=== PATIENT | female | born 1945 | race Caucasian/White ===

== ENCOUNTER 2016-11-23 15:49 | Emergency (ER) | payer MEDICARE ==
[2016-11-23 16:41] VITALS: BP 161/110
[2016-11-23] MEDS ORDERED: Lidocaine 2% W/EPI 1:100,000* 20 ML MDV ONE (17:19)
--- NOTE | 2016-11-23 17:25 | UC ---
Laceration HPI - HPI Summary HPI Summary: Fell at drug store, hit chin and sustained laceration. Denies neck or dental pain. - History Of Current Complaint Chief Complaint: UCLaceration Stated Complaint: CHIN LAC Time Seen by Provider: 11/23/16 16:27 Hx Obtained From: Patient Laceration Location: Face Mechanism Of Injury: Blunt Trauma Onset/Duration: Sudden Onset Severity: Mild - Allergies/Home Medications Allergies/Adverse Reactions: Allergies Allergy/AdvReac Type Severity Reaction Status Date / Time Levofloxacin [From Levaquin] Allergy Intermediate Hives Verified 12/17/15 16:09 Codeine Allergy Unknown Headache Verified 12/17/15 16:09 Fentanyl Allergy Unknown Unknown Verified 12/17/15 16:09 Reaction Details Penicillin G Allergy Unknown Hives Verified 12/17/15 16:09 [From Penicillin Potassium-G] Morphine AdvReac Unknown Headache Verified 12/17/15 16:09 bees Allergy Swelling Uncoded 12/17/15 16:09 PMH/Surg Hx/FS Hx/Imm Hx Endocrine History Of: Denies: Diabetes, Thyroid Disease, Hyperthyroidism, Hypothyroidism Cardiovascular History Of: Reports: Hypertension, Congestive Heart Failure Denies: Cardiac Disorders Respiratory History Of: Reports: COPD, Bronchitis Denies: Asthma GI/ History Of: Denies: Ulcer, Renal Disease Neurological History Of: Denies: TIA, Seizures - Surgical History Surgical History: Yes Surgery Procedure, Year, and Place: bilat mastectomy. right hip replace 09/2006 , hysterectomy. AAA repair 11/11. - Family History Known Family History: Positive: Hypertension - Social History Occupation: Retired Alcohol Use: None Substance Use Type: None Smoking Status (MU): Light Every Day Tobacco Smoker Type: Cigarettes Amount Used/How Often: 1 PACK/WEEK Length of Time of Smoking/Using Tobacco: 60+ YEARS Have You Smoked in the Last Year: Yes - Immunization History Most Recent Influenza Vaccination: 2014 Most Recent Tetanus Shot: <5 yrs Most Recent Pneumonia Vaccination: CURRENT Review of Systems Constitutional: Negative Skin: Other - 2cm lac chin Eyes: Negative ENT: Negative Respiratory: Negative Cardiovascular: Negative Gastrointestinal: Negative Genitourinary: Negative Motor: Negative Neurovascular: Negative Musculoskeletal: Negative Neurological: Negative Psychological: Negative All Other Systems Reviewed And Are Negative: Yes Physical Exam Triage Information Reviewed: Yes Appearance: Well-Appearing, No Pain Distress, Well-Nourished Vital Signs: Initial Vital Signs Temp 97.1 F 11/23/16 16:32 Pulse 82 11/23/16 16:32 Resp 18 11/23/16 16:32 BP 161/110 11/23/16 16:32 Pulse Ox 98 11/23/16 16:32 Vital Signs Reviewed: Yes Eye Exam: Normal Eyes: Positive: Conjunctiva Clear ENT Exam: Normal ENT: Positive: Normal ENT inspection, Hearing grossly normal, Pharynx normal, TMs normal Dental Exam: Other - some missing teeth, no dental pain Dental: Negative: Percussion Tenderness @ Neck exam: Normal Neck: Positive: Supple, Nontender, No Lymphadenopathy Respiratory Exam: Normal Respiratory: Positive: Chest non-tender, Lungs clear, Normal breath sounds, No respiratory distress, No accessory muscle use Cardiovascular Exam: Normal Cardiovascular: Positive: RRR, No Murmur Musculoskeletal Exam: Normal, Other Musculoskeletal: Positive: Strength Intact, ROM Intact Neurological Exam: Normal Neurological: Positive: Alert, Muscle Tone Normal Psychological Exam: Normal Skin Exam: Other - 2cm lac on chin Laceration Repair - Laceration Repair 1 Description: Linear Laceration Size After Repair: Length (cm) - 2, Width (mm) - 0, Depth (mm) - 0 Modified For Repair: No Type Injection: Local Anesthesia Used: 2.0% Lido Additive Used (in ml): Epi Irrigation With Pressure Irrigation Device: Yes Closure Material: Sutures Closure Method: Single Layer Suture Of: Skin Suture Type: Nylon - #6 6-0 Laceration Course/Dx - Differential Dx - Laceration/Wound Provider Diagnoses: Chin laceration repair Discharge - Discharge Plan Condition: Stable Disposition: HOME Patient Education Materials: Facial Laceration (ED) Additional Instructions: Return here in 7-8 days for suture removal. Come back sooner if you suspect a problem.
== END 2016-11-23 18:00 | disposition home or self-care (01) ==
LOC: UCEAST 15:49
DX: S01.81XA Laceration without foreign body of other part of head, initial encounter (principal); W19.XXXA Unspecified fall, initial encounter; Y92.512 Supermarket, store or market as the place of occurrence of the external cause; J44.9 Chronic obstructive pulmonary disease, unspecified; Z88.5 Allergy status to narcotic agent; Z88.0 Allergy status to penicillin; F17.210 Nicotine dependence, cigarettes, uncomplicated
CPT/HCPCS: 12011; 99211; G0463

== ENCOUNTER 2016-11-29 11:11 | Emergency (ER) | payer MEDICARE ==
[2016-11-29 12:26] VITALS: BP 154/104
== END 2016-11-29 13:15 | disposition left against medical advice (07) ==
LOC: UCEAST 11:11
DX: Z48.02 Encounter for removal of sutures (principal); Z53.21 Procedure and treatment not carried out due to patient leaving prior to being seen by health care provider

== ENCOUNTER 2017-05-11 21:24 | Emergency (ER) | payer MEDICARE ==
[2017-05-11] MEDS ORDERED: oxyCODONE TAB* 5 MG TAB PO ONE (23:24)
--- NOTE | 2017-05-12 00:32 | ED ---
Adult Trauma - HPI Summary HPI Summary: 71F presents with left wrist pain and finger laceration s/p fall. She tripped and landed on her left arm. There may have been a potential head injury but she denies any LOC. She admits to numbness over wrist were ice is but she has feeling there. She is not on blood thinners. She denies any nausea or vomiting. She fell onto her wrist and her cane. She has history of joint pain in her wrist and fingers. She takes oxy on a daily basis. She denies any neck pain, chest pain, SOB, abdominal pain, or lower extremity pain. She believes tetanus is up to date. She is right handed. - History of Current Complaint Chief Complaint: EDExtremityUpper Stated Complaint: FALL/LT ARM INJURY Time Seen by Provider: 05/11/17 22:11 Hx Last Menstrual Period: NA Pain Intensity: 8 - Additional Pertinent History Primary Care Physician: JEANNE - Allergy/Home Medications Allergies/Adverse Reactions: Allergies Allergy/AdvReac Type Severity Reaction Status Date / Time Levofloxacin [From Levaquin] Allergy Intermediate Hives Verified 12/17/15 16:09 Codeine Allergy Unknown Headache Verified 12/17/15 16:09 Fentanyl Allergy Unknown Unknown Verified 12/17/15 16:09 Reaction Details Penicillin G Allergy Unknown Hives Verified 12/17/15 16:09 [From Penicillin Potassium-G] Morphine AdvReac Unknown Headache Verified 12/17/15 16:09 bees Allergy Swelling Uncoded 12/17/15 16:09 PMH/Surg Hx/FS Hx/Imm Hx Endocrine/Hematology History: Denies: Hx Anticoagulant Therapy, Hx Diabetes, Hx Thyroid Disease Cardiovascular History: Reports: Hx Aneurysm - AAA 10/2015, aortic root replacment, Hx Congestive Heart Failure, Hx Hypercholesterolemia, Hx Hypertension Respiratory History: Reports: Hx Chronic Obstructive Pulmonary Disease (COPD), Hx Pleural Effusion Denies: Hx Asthma GI History: Reports: Hx Gastroesophageal Reflux Disease, Hx Obstructive Bowel, Other GI Disorders - see above hx Denies: Hx Ulcer History: Denies: Hx Renal Disease Musculoskeletal History: Denies: Hx Arthritis, Hx Osteoporosis Sensory History: Denies: Hx Contacts or Glasses Opthamlomology History: Denies: Hx Contacts or Glasses Neurological History: Denies: Hx Headaches, Hx Seizures, Hx Transient Ischemic Attacks (TIA) - Cancer History Cancer Type, Location and Year: breast cancer 11/2011- clear as of 08/2012 Hx Chemotherapy: Yes - 04/[address] vela - Surgical History Surgery Procedure, Year, and Place: bilat mastectomy. right hip replace 09/2006 , hysterectomy. AAA repair 11/11. Infectious Disease History: No Infectious Disease History: Reports: Hx Shingles - treated Denies: Hx Clostridium Difficile, Hx Hepatitis, Hx Human Immunodeficiency Virus (HIV), Hx of Known/Suspected MRSA, Hx Tuberculosis, Hx Known/Suspected VRE , Hx Known/Suspected VRSA, History Other Infectious Disease, Traveled Outside the [place] in Last 30 Days - Family History Known Family History: Positive: Hypertension - Social History Alcohol Use: None Substance Use Type: Reports: None Smoking Status (MU): Light Every Day Tobacco Smoker Type: Cigarettes Amount Used/How Often: 1 PACK/WEEK Length of Time of Smoking/Using Tobacco: 60+ YEARS Have You Smoked in the Last Year: Yes Review of Systems Negative: Fever Negative: Chest Pain Negative: Shortness Of Breath Positive: Myalgia - left wrist Positive: Other - laceration All Other Systems Reviewed And Are Negative: Yes Physical Exam Triage Information Reviewed: Yes Vital Signs On Initial Exam: Initial Vitals Temp Pulse Resp BP Pulse Ox 98.2 F 72 16 116/72 96 05/11/17 21:31 05/11/17 21:31 05/11/17 21:31 05/11/17 21:31 05/11/17 21:31 Vital Signs Reviewed: Yes Appearance: Positive: Well-Appearing Skin: Positive: Warm, Dry, Other - 1cm avulsion with skin flap on distal phlanax near nail of left ring finger Head/Face: Positive: Normal Head/Face Inspection, Other - no step off, racoon eyes, colon sign Eyes: Positive: Normal ENT: Positive: Normal ENT inspection, Pharynx normal, TMs normal Respiratory/Lung Sounds: Positive: Clear to Auscultation, Breath Sounds Present Cardiovascular: Positive: Normal, RRR Musculoskeletal: Positive: Strength/ROM Intact - finger left, Limited @ - left wrist, Edema Left - wrist, Other - good pulses, capillary refill<2 secs, Neurological: Positive: Sensory/Motor Intact, Alert, Oriented to Person Place, Time, CN Intact II-III - [place] Coma Scale Best Eye Response: 4 - Spontaneous Best Motor Response: 6 - Obeys Commands Best Verbal Response: 5 - Oriented Coma Scale Total: 15 Procedures - Splinting Location: left wrist Hand-Made Type: orthoglass Splint: sugar-tong Pre-Proc Neuro Vasc Exam: normal Post-Proc Neuro Vasc Exam: normal - Laceration/Wound Repair 1 Location: Other - left finger Description: Irregular - avulsion Length, Depth and Shape: avulsion 1cm with skin flap Irrigated w/ Saline (ccs): 200 Sterile Dressing Applied?: No - placed pressure dressing Diagnostics - Vital Signs Vital Signs Temp Pulse Resp BP Pulse Ox 05/11/17 21:31 98.2 F 72 16 116/72 96 - Laboratory Lab Statement: Any lab studies that have been ordered have been reviewed, and results considered in the medical decision making process. - Radiology wrist, hand Xray Interpretation: Positive (See Comments) - distal radius fx Radiology Interpretation Completed By: ED Physician - CT brain CT Interpretation: No Acute Changes - no hemorrhage or fracture CT Interpretation Completed By: Radiologist Adult Trauma Course/Dx - Course Course Of Treatment: 71F presents with left wrist pain and finger laceration s/ p fall. She tripped and landed on her left arm. There may have been a potential head injury but she denies any LOC. She admits to numbness over wrist were ice is but she has feeling there. She is not on blood thinners. She denies any nausea or vomiting. She fell onto her wrist and her cane. She has history of joint pain in her wrist and fingers. She takes oxy on a daily basis. She denies any neck pain, chest pain, SOB, abdominal pain, or lower extremity pain. on exam has avulsion of left ring finger. wrist xray shows distal radius fracture. placed in splint and placed compression dressing on finger. told to follow up with ortho. patient understands and agrees with plan. - Diagnoses Provider Diagnoses: Left wrist fracture, Finger laceration Discharge - Discharge Plan Condition: Good Disposition: HOME Patient Education Materials: Wrist Fracture in Adults (ED), Skin Avulsion (ED) Referrals: Brigido Hernandez MD [Primary Care Provider] - Yessica Bruner MD [Medical Doctor] - Additional Instructions: Keep area in pressure dressing for 48 hours Keep splint on area and keep dry Call ortho office tomorrow to set up appointment for follow up Use normal pain medication Ice, elevate Follow up with primary within 5 days Return to ED if develop any signs of infection such as fever, spreading redness , or pus formation or if bleed through pressure dressing or any new or worsening symptoms
[2017-05-12 01:29] VITALS: BP 167/125
--- NOTE | 2017-05-12 07:35 | RAD ---
HISTORY: Fall, left hand and wrist pain COMPARISONS: None VIEWS: 6, Frontal, lateral, and oblique views of the left hand and of the left breast FINDINGS: BONE DENSITY: There is diffuse osteopenia. BONES: There is a dorsally angulated fracture of the distal radial metaphysis without significant displacement. JOINTS: There is osteoarthritis of the first CMC joint and of the first MCP joint and to a lesser extent of the interphalangeal joints. ALIGNMENT: There is no dislocation. SOFT TISSUES: Unremarkable. OTHER FINDINGS: None. IMPRESSION: 1. DORSALLY ANGULATED FRACTURE OF THE DISTAL RADIAL METAPHYSIS. 2. OSTEOPENIA. 3. OSTEOARTHRITIS.
--- NOTE | 2017-05-12 07:52 | RAD ---
HISTORY: Fall COMPARISONS: None TECHNIQUE: Multiple contiguous axial CT scans were obtained of the head without intravenous contrast. FINDINGS: HEMORRHAGE/INFARCT: There is no hemorrhage or acute infarct. MASSES/SHIFT: There is no mass or shift. EXTRA-AXIAL SPACES: There are no extra-axial fluid collections. SULCI AND VENTRICLES: There is mild diffuse and proportional enlargement of the sulci and ventricles. CEREBRUM: There are no focal parenchymal abnormalities. BRAINSTEM: There are no focal parenchymal abnormalities. CEREBELLUM: There are no focal parenchymal abnormalities. VESSELS: The vessels are grossly normal. PARANASAL SINUSES: The paranasal sinuses are clear. ORBITS: The orbits are unremarkable. BONES AND SOFT TISSUE: No bone or soft tissue abnormalities are noted. OTHER: None IMPRESSION: NO ACUTE INTRACRANIAL PATHOLOGY.
== END 2017-05-12 00:59 | disposition home or self-care (01) ==
LOC: ED 21:24
DX: S62.102A Fracture of unspecified carpal bone, left wrist, initial encounter for closed fracture (principal); S61.219A Laceration without foreign body of unspecified finger without damage to nail, initial encounter; W19.XXXA Unspecified fall, initial encounter; Y93.9 Activity, unspecified; Y92.9 Unspecified place or not applicable; F17.210 Nicotine dependence, cigarettes, uncomplicated
CPT/HCPCS: 70450; 99283; A9270-GY

== ENCOUNTER 2017-06-22 18:15 | Emergency (ER) | payer MEDICARE ==
[2017-06-22] MEDS ORDERED: NS 0.9% 1000 ML* 1,000 ML IV ONE (20:27)
[2017-06-22] MEDS ORDERED: Ondansetron INJ* 2 MG/ML VIAL IV ONE (20:27)
[2017-06-22] MEDS ORDERED: HYDROmorphone INJ* 1 MG/ML CARPUJECT SYRINGE IV SLOW PU ONE (20:27)
[2017-06-22 21:06] LABS: Hematocrit 33 % (35-47); Mean Corpuscular HGB Conc 33 g/dl (31-36); Mean Corpuscular Hemoglobin 31 pg (27-31); Mean Corpuscular Volume 93 fL (80-97); Mean Platelet Volume 6 um3 (7.4-10.4); Red Blood Count 3.57 10^6/ul (4.0-5.4); Red Cell Distribution Width 15 % (10.5-15)
[2017-06-22 21:22] LABS: Albumin 3.8 g/dL (3.2-5.2); BUN/Creatinine Ratio 14.4 (8-20); C Reactive Protein 3.77 mg/L (< 5.00); Calcium 9.7 mg/dL (8.6-10.3); EGFR African American 62.3 (>60); EGFR Non-African American 48.5 (>60); Globulin 3.4 g/dL (2-4); Total Bilirubin 0.5 mg/dL (0.2-1.0); Total Protein 7.2 g/dL (6.4-8.9)
[2017-06-22 21:25] LABS: Potassium 2.7 mmol/L (3.5-5.0)
[2017-06-22 21:50] LABS: Troponin I 0.01 ng/mL (<0.04)
[2017-06-22] MEDS: KCL 20 MEQ/100 ML IVPREMIX* 20 MEQ/100 ML BAG IV SCH (23:07)
[2017-06-22 23:34] LABS: Urine Bacteria Absent (Absent); Urine Bilirubin Negative (Negative); Urine Glucose Negative (Negative); Urine Nitrite Negative (Negative)
[2017-06-23] MEDS ORDERED: HYDROmorphone INJ* 1 MG/ML CARPUJECT SYRINGE IV SLOW PU ONE (00:54)
[2017-06-23] MEDS ORDERED: Ondansetron INJ* 2 MG/ML VIAL IV ONE (00:54)
[2017-06-23] MEDS: KCL 20 MEQ/100 ML IVPREMIX* 20 MEQ/100 ML BAG IV SCH (01:15)
[2017-06-23] MEDS ORDERED: Labetalol IV* 5 MG/ML 20 ML VIAL IV PUSH ONE (02:29)
--- NOTE | 2017-06-23 02:41 | ED ---
Lamine Mendez Alfonso, scribed for Shante Hoff MD on 06/22/17 at 2012 . Hypertension - HPI Summary HPI Summary: This patient is a 71 year old F presenting to [facility] accompanied by daughter and granddaughter with a chief complaint of high blood pressure since earlier today. Her visiting nurse reported a blood pressure of approximately 200/100. The patient rates the pain 4/10 in severity. Symptoms aggravated by nothing. Symptoms alleviated by nothing. Patient reports nausea (since an hour ago), and right-sided abdominal pain (since the afternoon which radiate to her back). Patient denies CP, SOB, and dysuria. She lives alone. PMHX includes an internal hernia in September 2014, aneurysm, CHF, HTN, and COPD. - History of Current Complaint Chief Complaint: EDGeneral Stated Complaint: HIGH BLOOD PRESSURE Time Seen by Provider: 06/22/17 19:45 Hx Obtained From: Patient Hx Last Menstrual Period: NA Onset/Duration: Started Hours Ago, Still Present Timing: Constant Reported Blood Pressure Prior To Arrival: 200/100 Aggravating Factor(s): Nothing Alleviating Factor(s): Nothing Associated Signs & Symptoms: Other: - nausea (since an hour ago), and right- sided abdominal pain (since the afternoon which radiate to her back). Patient denies CP, SOB, and dysuria. - Allergies/Home Medications Allergies/Adverse Reactions: Allergies Allergy/AdvReac Type Severity Reaction Status Date / Time Levofloxacin [From Levaquin] Allergy Intermediate Hives Verified 12/17/15 16:09 Codeine Allergy Unknown Headache Verified 12/17/15 16:09 Fentanyl Allergy Unknown Unknown Verified 12/17/15 16:09 Reaction Details Penicillin G Allergy Unknown Hives Verified 12/17/15 16:09 [From Penicillin Potassium-G] Morphine AdvReac Unknown Headache Verified 12/17/15 16:09 bees Allergy Swelling Uncoded 12/17/15 16:09 PMH/Surg Hx/FS Hx/Imm Hx Endocrine/Hematology History: Denies: Hx Anticoagulant Therapy, Hx Diabetes, Hx Thyroid Disease Cardiovascular History: Reports: Hx Aneurysm - AAA 10/2015, aortic root replacment, Hx Congestive Heart Failure, Hx Hypercholesterolemia, Hx Hypertension Respiratory History: Reports: Hx Chronic Obstructive Pulmonary Disease (COPD), Hx Pleural Effusion Denies: Hx Asthma GI History: Reports: Hx Gastroesophageal Reflux Disease, Hx Obstructive Bowel, Other GI Disorders - internal hernia in September 2014 Denies: Hx Ulcer History: Denies: Hx Renal Disease Musculoskeletal History: Denies: Hx Arthritis, Hx Osteoporosis Sensory History: Denies: Hx Contacts or Glasses Opthamlomology History: Denies: Hx Contacts or Glasses Neurological History: Denies: Hx Headaches, Hx Seizures, Hx Transient Ischemic Attacks (TIA) - Cancer History Cancer Type, Location and Year: breast cancer 11/2011- clear as of 08/2012 Hx Chemotherapy: Yes - 04/[address] vela - Surgical History Surgery Procedure, Year, and Place: bilat mastectomy. right hip replace 09/2006 , hysterectomy. AAA repair 11/11. Infectious Disease History: No Infectious Disease History: Reports: Hx Shingles - treated Denies: Hx Clostridium Difficile, Hx Hepatitis, Hx Human Immunodeficiency Virus (HIV), Hx of Known/Suspected MRSA, Hx Tuberculosis, Hx Known/Suspected VRE , Hx Known/Suspected VRSA, History Other Infectious Disease, Traveled Outside the [place] in Last 30 Days - Family History Known Family History: Positive: Hypertension - Social History Lives: Alone Alcohol Use: None Substance Use Type: Reports: None Smoking Status (MU): Light Every Day Tobacco Smoker Type: Cigarettes Amount Used/How Often: 1 PACK/WEEK Length of Time of Smoking/Using Tobacco: 60+ YEARS Have You Smoked in the Last Year: Yes Review of Systems Positive: Other - high blood pressure. Negative: Chest Pain Negative: Shortness Of Breath Positive: Abdominal Pain - right-sided abdominal pain (since the afternoon which radiate to her back), Nausea Negative: dysuria All Other Systems Reviewed And Are Negative: Yes Physical Exam - Summary Physical Exam Summary: General: Well appearing, no pain distress Skin: Warm, Skin Color Reflects Adequate Perfusion, Dry Eyes: EOMI, MARVIN ENT: Pharynx normal, TMs normal Neck: Supple, nontender Respiratory: CTA, breath sounds present, no rhonchi, no wheezes, no rales Cardiovascular: RRR, no murmur, no rub, no gallop Abdomen: RLQ and right flank tenderness. Soft. Non-distended, no guarding, no rebound Bowel: Present Musculoskeletal: JOHN, No edema Neuro: Sensory/motor intact, A&Ox3, CN intact 2-12 Psych: Affect/mood appropriate Triage Information Reviewed: Yes Vital Signs On Initial Exam: Initial Vitals Temp Pulse Resp BP Pulse Ox 98.5 F 75 20 170/131 97 06/22/17 18:19 06/22/17 18:19 06/22/17 18:19 06/22/17 18:19 06/22/17 18:19 Vital Signs Reviewed: Yes Diagnostics - Vital Signs Vital Signs Temp Pulse Resp BP Pulse Ox 06/22/17 18:19 98.5 F 75 20 170/131 97 - Laboratory Lab Results: Lab Results 06/22/17 06/22/17 06/22/17 Range/Units 20:57 20:57 20:57 WBC 7.0 (3.5-10.8) 10^3/ul RBC 3.57 L (4.0-5.4) 10^6/ul Hgb 11.0 L (12.0-16.0) g/dl Hct 33 L (35-47) % MCV 93 (80-97) fL MCH 31 (27-31) pg MCHC 33 (31-36) g/dl RDW 15 (10.5-15) % Plt Count 215 (150-450) 10^3/ul MPV 6 L (7.4-10.4) um3 Neut % (Auto) 71.3 (38-83) % Lymph % (Auto) 16.9 L (25-47) % Reeves % (Auto) 9.1 H (1-9) % Eos % (Auto) 1.6 (0-6) % Baso % (Auto) 1.1 (0-2) % Absolute Neuts (auto) 5.0 (1.5-7.7) 10^3/ul Absolute Lymphs (auto) 1.2 (1.0-4.8) 10^3/ul Absolute Monos (auto) 0.6 (0-0.8) 10^3/ul Absolute Eos (auto) 0.1 (0-0.6) 10^3/ul Absolute Basos (auto) 0.1 (0-0.2) 10^3/ul Absolute Nucleated RBC 0 10^3/ul Nucleated RBC % 0 Sodium 133 (133-145) mmol/L Potassium 2.7 L* (3.5-5.0) mmol/L Chloride 99 L (101-111) mmol/L Carbon Dioxide 25 (22-32) mmol/L Anion Gap 9 (2-11) mmol/L BUN 16 (6-24) mg/dL Creatinine 1.11 H (0.51-0.95) mg/dL Est GFR ( Amer) 62.3 (>60) Est GFR (Non-Af Amer) 48.5 (>60) BUN/Creatinine Ratio 14.4 (8-20) Glucose 114 H (70-100) mg/dL Lactic Acid 1.1 (0.5-2.0) mmol/L Calcium 9.7 (8.6-10.3) mg/dL Magnesium 2.0 (1.9-2.7) mg/dL Total Bilirubin 0.50 (0.2-1.0) mg/dL AST 15 (13-39) U/L ALT 7 (7-52) U/L Alkaline Phosphatase 72 (34-104) U/L Troponin I 0.01 (<0.04) ng/mL C-Reactive Protein 3.77 (< 5.00) mg/L Total Protein 7.2 (6.4-8.9) g/dL Albumin 3.8 (3.2-5.2) g/dL Globulin 3.4 (2-4) g/dL Albumin/Globulin Ratio 1.1 (1-3) Lipase 33 (11.0-82.0) U/L Urine Color Urine Appearance Urine pH (5-9) Ur Specific Sunman (1.010-1.030) Urine Protein (Negative) Urine Ketones (Negative) Urine Blood (Negative) Urine Nitrate (Negative) Urine Bilirubin (Negative) Urine Urobilinogen (Negative) Ur Leukocyte Esterase (Negative) Urine WBC (Auto) (Absent) Urine RBC (Auto) (Absent) Ur Squamous Epith Cells (Absent) Urine Bacteria (Absent) Urine Glucose (Negative) 06/22/17 Range/Units 23:00 WBC (3.5-10.8) 10^3/ul RBC (4.0-5.4) 10^6/ul Hgb (12.0-16.0) g/dl Hct (35-47) % MCV (80-97) fL MCH (27-31) pg MCHC (31-36) g/dl RDW (10.5-15) % Plt Count (150-450) 10^3/ul MPV (7.4-10.4) um3 Neut % (Auto) (38-83) % Lymph % (Auto) (25-47) % Reeves % (Auto) (1-9) % Eos % (Auto) (0-6) % Baso % (Auto) (0-2) % Absolute Neuts (auto) (1.5-7.7) 10^3/ul Absolute Lymphs (auto) (1.0-4.8) 10^3/ul Absolute Monos (auto) (0-0.8) 10^3/ul Absolute Eos (auto) (0-0.6) 10^3/ul Absolute Basos (auto) (0-0.2) 10^3/ul Absolute Nucleated RBC 10^3/ul Nucleated RBC % Sodium (133-145) mmol/L Potassium (3.5-5.0) mmol/L Chloride (101-111) mmol/L Carbon Dioxide (22-32) mmol/L Anion Gap (2-11) mmol/L BUN (6-24) mg/dL Creatinine (0.51-0.95) mg/dL Est GFR ( Amer) (>60) Est GFR (Non-Af Amer) (>60) BUN/Creatinine Ratio (8-20) Glucose (70-100) mg/dL Lactic Acid (0.5-2.0) mmol/L Calcium (8.6-10.3) mg/dL Magnesium (1.9-2.7) mg/dL Total Bilirubin (0.2-1.0) mg/dL AST (13-39) U/L ALT (7-52) U/L Alkaline Phosphatase (34-104) U/L Troponin I (<0.04) ng/mL C-Reactive Protein (< 5.00) mg/L Total Protein (6.4-8.9) g/dL Albumin (3.2-5.2) g/dL Globulin (2-4) g/dL Albumin/Globulin Ratio (1-3) Lipase (11.0-82.0) U/L Urine Color Straw Urine Appearance Clear Urine pH 6.0 (5-9) Ur Specific [place] 1.010 (1.010-1.030) Urine Protein 1+(30 mg/dl) H (Negative) Urine Ketones Negative (Negative) Urine Blood 1+ H (Negative) Urine Nitrate Negative (Negative) Urine Bilirubin Negative (Negative) Urine Urobilinogen Negative (Negative) Ur Leukocyte Esterase Negative (Negative) Urine WBC (Auto) Trace(0-5/hpf) (Absent) Urine RBC (Auto) 3+(>10/hpf) H (Absent) Ur Squamous Epith Cells Present H (Absent) Urine Bacteria Absent (Absent) Urine Glucose Negative (Negative) Result Diagrams: 06/22/17 20:57 06/22/17 20:57 Lab Statement: Any lab studies that have been ordered have been reviewed, and results considered in the medical decision making process. - CT A/P CT Interpretation Completed By: Radiologist - No small or large bowel obstruction. Increasing size of thoracoabdominal aortic aneurysm. ED physician has reviewed this radiology report and agrees. - EKG 1826 Cardiac Rate: NL - BPM 75 EKG Rhythm: Sinus Rhythm EKG Interpretation: LVH EKG Comparison: Other - Slightly peaked T-waves compared to 12/19/15 when she had t-wave inversions Hypertension Course/Dx - Course Course Of Treatment: 71 yo female with hx of thoracic aneurysm repair and known thoracoabdominal aneurysm with onset of abd pain on wed with visiting nurse noting elevated bp's in the 190-200 range. Pt on exam has rlq/rt flank pain, CT shows increased size of her aneurysm and when discussing the case with imaging coupon clerk no ureteral stone despite 3+ blood in her urine. The case was discussed with the family and the decision was made to transfer to [facility]. The case was then discussed with vascular surgery and then with the ED Dr. Gamez who will be accepting the patient. Her BP which has remained high despite pain meds and pain that is now adequately controlled in light of this aneurysm that is increasing in size will be controlled her with labetelol. 30 mins of critical care time were devoted to this patient - Diagnoses Provider Diagnoses: Aortic aneurysm and dissection, Abdominal pain Discharge - Discharge Plan Condition: Guarded Disposition: TRANS HIGHER LVL OF CARE FAC The documentation as recorded by the Lamine conway Alfonso accurately reflects the service I personally performed and the decisions made by me, Shante Hoff MD.
[2017-06-23 03:23] VITALS: BP 159/110
--- NOTE | 2017-06-23 07:52 | RAD ---
CLINICAL HISTORY: Right lower quadrant pain with flank pain COMPARISON: August 26, 2015 TECHNIQUE: Multiple contiguous axial CT scans were obtained of the abdomen and pelvis, without intravenous contrast enhancement. Coronal and sagittal multiplanar reformations are submitted for review. Oral contrast was not administered. The study is limited by the lack of intravenous contrast. This limits evaluation of the solid organs and vasculature. FINDINGS: LUNG BASES: The lung bases are clear. LIVER: The liver is normal in shape, size, contour, and attenuation. BILE DUCTS: There is no intrahepatic or extrahepatic biliary dilatation. GALLBLADDER: The gallbladder is normal, without pericholecystic inflammatory change. PANCREAS: The pancreas is normal, without mass or ductal dilatation. SPLEEN: Normal in size and appearance. UPPER GI TRACT: Evaluation of the gastrointestinal tract is limited by incomplete gastric distention. The upper GI tract is unremarkable. SMALL BOWEL AND MESENTERY: The small bowel is normal in contour, course, and caliber. There is no obstruction or dilatation. COLON: The colon is normal in contour, course, caliber. There is no pericolonic inflammatory change. ADRENALS: Normal bilaterally. KIDNEYS: Multiple renal cysts are noted. There is mild pelviectasis and proximal hydroureter on the left. There is no appreciable nephrolithiasis BLADDER: The bladder is smooth in contour. PELVIC ORGANS: The pelvic organs are not well evaluated. Evaluation is limited secondary to streak artifact from a right hip prosthesis. AORTA: The aorta is tortuous and diffusely enlarged, with fusiform aneurysmal dilatation up to 8 cm in transverse diameter, extending from the descending thoracic aorta through the aortic bifurcation.. This is increased when compared to the 2014 examination. There is high attenuation material noted along the margins of the aneurysm, suggestive of intramural calcification and hemorrhage.. There is no appreciable periaortic hematoma to suggest extravasation IVC: Unremarkable LYMPH NODES: There is no lymphadenopathy by size criteria. ABDOMINAL WALL: There is no evidence for abdominal wall hernia. BONES AND SOFT TISSUES: There is a scoliotic curvature of the spine. Degenerative changes are noted. The patient is status post right hip arthroplasty. OTHER: None IMPRESSION: 1. 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 EVALUATION OF THE AORTA IS LIMITED BY LACK OF INTRAVENOUS CONTRAST; HOWEVER, THERE IS HIGH ATTENUATION MATERIAL WITHIN THE WALL SUGGESTIVE OF INTRAMURAL CALCIFICATION AND HEMORRHAGE. THERE IS NO PERIAORTIC HEMATOMA TO SUGGEST EXTRAVASATION. 2. MILD LEFT-SIDED HYDRONEPHROSIS WITHOUT APPRECIABLE NEPHROLITHIASIS. 3. PULMONARY FINDINGS REGARDING THE INCREASE IN SIZE OF THE ABDOMINAL AORTIC ANEURYSM, AND RECOMMENDATION FOR VASCULAR CONSULTATION, WERE COMMUNICATED TO DR. BARLOW BY DR. URIAS AT APPROXIMATELY 12:24 AM ON 2016.
== END 2017-06-23 03:20 | disposition short-term general hospital (02) ==
LOC: ED 18:15
DX: I71.00 Dissection of unspecified site of aorta (principal); R10.9 Unspecified abdominal pain; R11.0 Nausea; F17.210 Nicotine dependence, cigarettes, uncomplicated
CPT/HCPCS: 36415; 74176; 80053; 81003; 81015; 83605; 83690; 83735; 84484; 85025; 86140; 93005; 96374; 96375; 99285; J1170; J2405; J3480